=== PATIENT | male | born 1960 | race Caucasian/White ===

== ENCOUNTER 2017-09-29 16:34 | Emergency (ER) | payer MEDICARE, OTHER ==
--- NOTE | 2017-09-29 16:59 | UC ---
Head Injury HPI - HPI Summary HPI Summary: fell and hit his head this evening no loc but did see stars abrasion on right side of forehead - History Of Current Complaint Chief Complaint: UCHeadInjury Stated Complaint: HEAD INJURY Time Seen by Provider: 09/29/17 16:47 Hx Obtained From: Patient Mechanism Of Injury: fall on ice Onset/Duration: Sudden Onset, Still Present, Other - happened 30 minutes prior to arrival Severity Currently: Mild Severity Initially: Mild Aggravating Factor(s): Nothing Alleviating Factor(s): Nothing Associated Signs And Symptoms: Positive: Negative - Allergies/Home Medications Allergies/Adverse Reactions: Allergies Allergy/AdvReac Type Severity Reaction Status Date / Time Fentanyl Allergy Vomiting Verified 09/29/17 17:02 Buprenorphine [From Butrans] AdvReac Diaphoresis Verified 09/29/17 17:02 PMH/Surg Hx/FS Hx/Imm Hx Previously Healthy: No - chronic pain - Surgical History Surgical History: Yes Surgery Procedure, Year, and Place: double hernia repair X2; L hand sx - Family History Known Family History: Positive: None - Social History Occupation: Disabled Lives: With Family Alcohol Use: None Alcohol Amount: over use occasionally. couple months ago had hangover that lasted 2 days. Substance Use Type: None Substance Use Comment - Amount & Last Used: tylenol with codeine Smoking Status (MU): Former Smoker Type: Cigarettes When Did the Patient Quit Smoking/Using Tobacco: - Immunization History Most Recent Influenza Vaccination: 2012 Most Recent Tetanus Shot: 2011 Most Recent Pneumonia Vaccination: n/a Review of Systems Constitutional: Negative Skin: Negative, Bruising - Abrasion on right side of forehead Eyes: Negative ENT: Negative Respiratory: Negative Cardiovascular: Negative Gastrointestinal: Negative Genitourinary: Negative Motor: Negative Neurovascular: Negative Musculoskeletal: Negative Neurological: Headache Psychological: Negative Is Patient Immunocompromised?: No All Other Systems Reviewed And Are Negative: Yes Physical Exam Triage Information Reviewed: Yes Appearance: Well-Appearing, No Pain Distress, Well-Nourished Vital Signs Reviewed: Yes Eye Exam: Normal Eyes: Positive: Conjunctiva Clear ENT Exam: Normal ENT: Positive: Normal ENT inspection, Hearing grossly normal, Pharynx normal, TMs normal, Uvula midline. Negative: Nasal congestion, Nasal drainage, Tonsillar swelling, Tonsillar exudate, Trismus, Muffled voice, Hoarse voice, Sinus tenderness Dental Exam: Normal Neck exam: Normal Neck: Positive: Supple, Nontender, No Lymphadenopathy Respiratory Exam: Normal Respiratory: Positive: Chest non-tender, Lungs clear, Normal breath sounds, No respiratory distress, No accessory muscle use Cardiovascular Exam: Normal Cardiovascular: Positive: RRR, No Murmur, Pulses Normal, Brisk Capillary Refill Musculoskeletal Exam: Normal Musculoskeletal: Positive: Strength Intact, ROM Intact, No Edema Neurological Exam: Normal Neurological: Positive: Alert, Muscle Tone Normal Psychological Exam: Normal Skin Exam: Other Skin: Positive: Other - absasion on right side of forehead Diagnostics - Radiology No standard instances Xray Interpretation: No Acute Changes Radiology Interpretation Completed By: Radiologist - EKG Cardiac Rate: NL Cardiac Rhythm: Sinus: Normal Ectopy: None ST Segment: Normal Head Injury Course/Dx - Course Course Of Treatment: wash abrasion with mild soap and water daily, "Brain Rest" follow with pcp prn - Differential Dx/Diagnosis Provider Diagnoses: forehead contusion, head injury , concussion without LOC Discharge - Discharge Plan Condition: Stable Disposition: HOME Patient Education Materials: Concussion (ED), Abrasion (ED), Post Concussion Syndrome (ED) Referrals: Juan Ochoa MD [Medical Doctor] - If Needed
[2017-09-29 17:01] VITALS: BP 126/85
--- NOTE | 2017-09-29 17:32 | RAD ---
INDICATION: Intracranial injury COMPARISON: None TECHNIQUE: Noncontrast axial source images were acquired from the skull base to the vertex. FINDINGS: Ventricles/sulci: The ventricles and cisterns are normal in size and configuration for age. Brain parenchyma: There is no focal parenchymal finding, evidence of intracranial mass, or intracranial mass effect. Intracranial hemorrhage:None. Extra-axial spaces: There are no abnormal extra axial fluid collections or evidence of extra-axial mass. Calvarium: There is no calvarial fracture or other calvarial abnormality. Scalp: There is no evidence of scalp or extracalvarial soft tissue abnormality. Paranasal sinuses/mastoid: The paranasal sinuses and mastoid air cells are clear. Other: None. IMPRESSION: NEGATIVE EXAMINATION
== END 2017-09-29 17:55 | disposition home or self-care (01) ==
LOC: UCEAST 16:34
DX: S00.83XA Contusion of other part of head, initial encounter (principal); S06.0X0A Concussion without loss of consciousness, initial encounter; Z88.5 Allergy status to narcotic agent; Z87.891 Personal history of nicotine dependence; W19.XXXA Unspecified fall, initial encounter; W22.8XXA Striking against or struck by other objects, initial encounter; Y92.9 Unspecified place or not applicable
CPT/HCPCS: 70450; 93005; 99212; G0463

== ENCOUNTER 2019-03-14 11:57 | Emergency (ER) | payer MEDICARE, OTHER ==
[2019-03-14] MEDS ORDERED: Morphine 4 MG/ML VIAL (1 ml) 4 MG/ML VIAL IV ONE (12:13)
[2019-03-14] MEDS ORDERED: Ondansetron INJ* 2 MG/ML VIAL IV ONE (12:13)
[2019-03-14] MEDS ORDERED: NS 0.9% 1000 ML** 1,000 ML IV ONE (12:13)
--- NOTE | 2019-03-14 12:19 | ED ---
Abdominal Pain/Male - HPI Summary HPI Summary: This patient is a 58 year old male presenting to ED via EMS with a chief complaint of ABD pain since a couple of hours ago. The CC is described as lower ABD pain, left flank and back pain. The pt states he was going to garden, but then got cramps in his abdominal area, a burning sensation at his left flank and pain throughout his whole back. He became nauseous and vomited. Pt reports no dysuria and slight hematuria, but does not describe this as acute. The patient rates the pain slowly decreasing in severity and currently rates it . Pt took [employer], which did not alleviate symptoms. EMS did not provide any medications for his pain. Pt states he hast a fentanyl allergy, noting that he vomits upon taking it. He notes his left flank is still sore, and that he still has lower ABD pain/cramps and some numbness in left leg. Patient denies chest pain, SOB. He reports Hx of pinched nerve in his lower back. Patient denies heart problems, and aorta problems. Pt notes he has a history of disc problems , is a former smoker, does not use drugs, and is an occasional drinker. He has no Hx of kidney stones or diverticulitis. - History of Current Complaint Chief Complaint: EDAbdPain Stated Complaint: ABD PAIN Time Seen by Provider: 03/14/19 12:02 Hx Obtained From: Patient Onset/Duration: Sudden Onset, Lasting Hours, Still Present Timing: Constant, Lasting Hours Severity Initially: Severe Severity Currently: Severe Pain Intensity: 8 Pain Scale Used: 0-10 Numeric Location: Discrete At: LLQ, Flank - left, Other - whole back Character: Cramping Aggravating Factor(s): Nothing Alleviating Factor(s): Vomiting Associated Signs And Symptoms: Positive: Back Pain, Nausea, Vomiting, Other - positive left leg numbness, negative SOB. Negative: Chest Pain, Urinary Symptoms - Allergies/Home Medications Allergies/Adverse Reactions: Allergies Allergy/AdvReac Type Severity Reaction Status Date / Time buprenorphine [From Butrans] Allergy Unknown Diaphoresis Verified 03/14/19 12:08 fentanyl AdvReac Unknown Vomiting Verified 03/14/19 12:08 Home Medications: Home Medications ValACYclovir (*) [Valtrex 500 mg (*)] 500 mg PO DAILY 03/14/19 [History Confirmed 03/14/19] PMH/Surg Hx/FS Hx/Imm Hx Endocrine/Hematology History: Denies: Hx Diabetes Cardiovascular History: Reports: Hx Hypercholesterolemia Denies: Hx Hypertension, Hx Pacemaker/ICD Respiratory History: Reports: Hx Chronic Bronchitis, Hx Pneumonia, Hx Seasonal Allergies GI History: Reports: Hx Hiatal Hernia History: Denies: Hx Renal Disease Musculoskeletal History: Reports: Hx Arthritis, Hx Back Problems, Other Musculoskeletal History Denies: Hx Scoliosis Sensory History: Reports: Hx Contacts or Glasses - Reading glasses Denies: Hx Hearing Aid Opthamlomology History: Reports: Hx Contacts or Glasses - Reading glasses Neurological History: Reports: Hx Headaches - MAIGRANES, Hx Migraine, Other Neuro Impairments/Disorders - PAIN CLINIC PATIENT Psychiatric History: Reports: Hx Depression Denies: Hx Panic Disorder - Surgical History Surgery Procedure, Year, and Place: double hernia repair X2; L hand - stitches - Immunization History Immunizations Up to Date: Yes Infectious Disease History: Unable to Obtain/Confirm Infectious Disease History: Denies: Traveled Outside the [place] in Last 30 Days - Family History Known Family History: Positive: Other - family Hx of arthritis and suicide - Social History Alcohol Use: Occasionally Alcohol Amount: 1x/year Substance Use Type: Reports: None Substance Use Comment - Amount & Last Used: tylenol with codeine Smoking Status (MU): Former Smoker Type: Cigarettes Review of Systems Negative: Chest Pain Negative: Shortness Of Breath Positive: Abdominal Pain, Vomiting, Nausea Positive: flank pain - left, hematuria - some blood present in urine. Negative : dysuria Musculoskeletal: Other - positive back pain Positive: Numbness - left leg All Other Systems Reviewed And Are Negative: Yes Physical Exam - Summary Physical Exam Summary: GENERAL: Patient is a well-developed and nourished M who is lying with some pain in the stretcher. Patient is not in any acute respiratory distress. HEAD AND FACE: Normocephalic EYES: PERRLA, EOMI x 2. EARS: Hearing grossly intact. MOUTH: Oropharynx within normal limits. NECK: Supple, trachea is midline, no adenopathy, no JVD, no carotid bruit. CHEST: Symmetric, no tenderness at palpation LUNGS: Clear to auscultation bilaterally. No wheezing or crackles. CVS: Regular rate and rhythm, S1 and S2 present, no murmurs or gallops appreciated. ABDOMEN: tenderness to palpation at LLQ. Bowel sounds are normal. No abnormal abdominal pulsations. EXTREMITIES: Full ROM in all major joints, no edema, no cyanosis or clubbing. NEURO: Alert and oriented x 3. No acute neurological deficits. Speech is normal and follows commands. SKIN: Dry and warm Triage Information Reviewed: Yes Vital Signs On Initial Exam: Initial Vitals Temp Pulse Resp BP Pulse Ox 96.8 F 65 16 125/85 100 03/14/19 12:00 03/14/19 12:00 03/14/19 12:00 03/14/19 12:00 03/14/19 12:00 Vital Signs Reviewed: Yes Diagnostics - Vital Signs Vital Signs Temp Pulse Resp BP Pulse Ox 03/14/19 12:00 96.8 F 65 16 125/85 100 - Laboratory Result Diagrams: 03/14/19 12:23 03/14/19 12:23 Lab Statement: Any lab studies that have been ordered have been reviewed, and results considered in the medical decision making process. - CT ABD/PEL CT Interpretation Completed By: Radiologist Summary of CT Findings: CT ABD/PEL IMPRESSION. 1. THERE IS A 7 X 3 MM CALCULUS AT THE LEFT URETEROVESICAL JUNCTION CAUSING MILD TO. MODERATE HYDRONEPHROSIS. 2. THERE IS A ADDITIONAL 2 MM NONOBSTRUCTING LEFT RENAL CALCULUS. THIS REPORT WAS REVIEWED BY DR. SUAZO - EKG 1221 Cardiac Rate: NL - RATE OF 66 BPM EKG Rhythm: Sinus Rhythm Summary of EKG Findings: EKG showed sinus rhythm with rate of 66 BPM, normal axis. Abdominal Pain Male Course/Dx - Course Course Of Treatment: This patient is a 58 year old male presenting to ED via EMS with a chief complaint of ABD pain since a couple of hours ago. The CC is described as lower ABD pain, left flank and back pain. He became nauseous and vomited. Pt reports no dysuria and slight hematuria, but does not describe this as acute. The patient notes the pain is slowly decreasing in severity and currently rates it 8/10. Patient denies chest pain, SOB. He reports Hx of pinched nerve in his lower back. He has no Hx of kidney stones or diverticulitis. On physical exam, there was tenderness to palpation at LLQ of the pt's ABD. During ED course, patient received Toradol 30 mg IV, Zofran 4 mg IV, morphine 4 mg IV, and fluids. Lab results show elevated WBC, MCV, MCH, BUN/ creatinine, and glucose. CT ABD/PEL IMPRESSION. 1. THERE IS A 7 X 3 MM CALCULUS AT THE LEFT URETEROVESICAL JUNCTION CAUSING MILD TO. MODERATE HYDRONEPHROSIS. 2. THERE IS A ADDITIONAL 2 MM NONOBSTRUCTING LEFT RENAL CALCULUS. Results were discussed with patient, patient reports improvement in Sx. Patient is agreeable with discharged and follow up with urologist and primary care physician. - Diagnoses Provider Diagnoses: Kidney stones Discharge - Sign-Out/Discharge Documenting (check all that apply): Patient Departure - discharge Patient Received Moderate/Deep Sedation with Procedure: No - Discharge Plan Condition: Stable Disposition: HOME Prescriptions: Ibuprofen TAB* [Motrin TAB* 800 MG] 800 mg PO Q8H #24 tab Ondansetron ODT TAB* [Zofran 4 MG Odt TAB*] 4 mg PO Q6H PRN #9 tab.odt PRN Reason: Nausea Oxycodone HCl/Acetaminophen [Percocet 5-325 mg Tablet] 1 each PO Q6H PRN #16 tablet MDD 4 PRN Reason: Pain Tamsulosin HCl [Flomax] 0.4 mg PO DAILY 30 Days cap.er.24h Tamsulosin HCl [Flomax] 0.4 mg PO DAILY #30 cap.er.24h Patient Education Materials: Kidney Stones (ED) Referrals: Vijaya Pineda MD [Primary Care Provider] - 3 Days Kwaku Balderrama MD [Medical Doctor] - As Soon As Possible Additional Instructions: CALL UROLOGIST'S OFFICE TODAY FOR AN APPOINTMENT. RETURN TO ED FOR ANY NEW OR WORSENING SYMPTOMS. - Billing Disposition and Condition Condition: STABLE Disposition: Home - Attestation Statements Document Initiated by Gissell: Yes Documenting Scribe: COMPA MARSHALL Provider For Whom Gissell is Documenting (Include Credential): VAN SUAZO MD Scribe Attestation: COMPA Jimenez scribed for VAN SUAZO MD on 03/14/19 at 1956. Scribe Documentation Reviewed: Yes Provider Attestation: The documentation as recorded by the COMPA kelly accurately reflects the service I personally performed and the decisions made by me, VAN SUAZO MD Status of Scribe Document: Viewed
[2019-03-14 12:34] LABS: ABS Lymphocytes 0.6 10^3/ul (1.0-4.8); ABS Monocytes 0.4 10^3/ul (0-0.8); ABS Neutrophils 10.4 10^3/ul (1.5-7.7); Eosinophil % 0.2 %; Hematocrit 44 % (42-52); Hemoglobin 14.7 g/dL (14.0-18.0); Lymphocyte % 5.2 %; Mean Corpuscular HGB Conc 33 g/dL (31-36); Mean Corpuscular Hemoglobin 34 pg (27-31); Mean Corpuscular Volume 101 fL (80-94); Mean Platelet Volume 8.6 fL (7.4-10.4); Nucleated Red Blood Cells % 0.1; Platelet Count 207 10^3/uL (150-450); Red Blood Count 4.35 10^6 /uL (4.18-5.48); Red Cell Distribution Width 14 % (10.5-15); White Blood Count 11.5 10^3/uL (3.5-10.8)
[2019-03-14 12:44] LABS: Activated Partial Thrombo Time 28.8 seconds (26.0-38.0); INR 0.96 (0.82-1.09)
[2019-03-14 12:54] LABS: Urine Appearance Cloudy; Urine Bacteria Absent (Absent); Urine Bilirubin Negative (Negative); Urine Blood 3+ (Negative); Urine Color Yellow; Urine Glucose Negative (Negative); Urine Ketones 1+ (Negative); Urine Nitrite Negative (Negative); Urine Protein Negative (Negative); Urine Red Blood Cell 3+(>10/hpf) (Absent); Urine Specific Gravity 1.026 (1.010-1.030); Urine Urobilinogen Negative (Negative); Urine White Blood Cell Trace(0-5/hpf) (Absent)
[2019-03-14 12:56] LABS: Albumin 4.2 g/dL (3.2-5.2); Albumin/Globulin Ratio 1.4 (1-3); BUN/Creatinine Ratio 22.1 (8-20); C Reactive Protein 5.47 mg/L (<8.01); Calcium 10.2 mg/dL (8.6-10.3); EGFR African American 88.4 (>60); EGFR Non-African American 73.1 (>60); Potassium 4.1 mmol/L (3.5-5.0); Total Bilirubin 0.6 mg/dL (0.2-1.0); Total Protein 7.2 g/dL (6.4-8.9)
[2019-03-14] MEDS ORDERED: Ketorolac INJ* 30 MG/ML 1 ML VIAL IV PUSH ONE (13:22)
[2019-03-14 14:17] VITALS: BP 111/75
== END 2019-03-14 14:17 | disposition home or self-care (01) ==
LOC: ED 11:57
DX: N13.2 Hydronephrosis with renal and ureteral calculous obstruction (principal); Z87.891 Personal history of nicotine dependence; Z79.899 Other long term (current) drug therapy; Z88.5 Allergy status to narcotic agent
CPT/HCPCS: 36415; 74176; 80053; 81003; 81015; 83605; 83690; 83735; 84484; 85025; 85610; 85730; 86140; 87086; 93005; 96361; 96374; 96375; 99283; J1885; J2270; J2405

== ENCOUNTER 2019-03-28 08:17 | Day surgery (SDC) | payer MEDICARE, OTHER ==
--- NOTE | 2019-03-26 10:56 | HP ---
CC: Dr. Pineda * ADMITTING HISTORY AND PHYSICAL: DATE OF ADMISSION: 03/28/19 ADMITTING DIAGNOSES: 1. Calculus, left ureter. 2. Left hydronephrosis. PLANNED PROCEDURE: Left ureteroscopy, possible laser and stent insertion. SURGEON: Dr. Angeles. HISTORY OF PRESENT ILLNESS: Abhi Herrera is a 58-year-old gentleman who had recently been seen after an episode of severe left flank pain. CT scan and a subsequent ultrasound revealed a 6-mm partially obstructing calculus persistent of the left ureterovesical junction and he is now being brought in for management of the same. PAST MEDICAL HISTORY: Significant for: 1. Depression. 2. Chronic back and neck pain. 3. Hiatal hernia. PAST SURGICAL HISTORY: Significant for bilateral inguinal hernia repair and left hand surgery. MEDICATIONS: On admission include: 1. Pantoprazole 20 mg daily. 2. Tramadol 50 mg p.r.n. 3. Pravastatin 20 mg daily. 4. Escitalopram 5 mg daily. 5. Diclofenac 75 mg b.i.d. p.r.n. 6. Valacyclovir 1 mg daily. He also was recently started on Z-Juan, which is now finished for bronchitis and also was given a short-term inhaler for cough related to the bronchitis. ALLERGIES AND INTOLERANCES: FENTANYL PATCH (vomiting). FAMILY HISTORY: Negative for stones or for bladder or prostate cancer. SMOKING HISTORY: He is a former smoker, who quit 20 years ago with a 15-pack- year smoking history. REVIEW OF SYSTEMS: He is otherwise in good health. He denies any chest pain or shortness of breath. He has no history of diabetes mellitus or any other major systemic illness. PHYSICAL EXAMINATION GENERAL: Pleasant middle-aged gentleman. VITAL SIGNS: Blood pressure is 140/68, pulse 83 per minute, oxygen saturation 99% on room air, temperature 96. LUNGS: Clear bilaterally. CARDIOVASCULAR: Regular rate and rhythm. S1, S2. ABDOMEN: Soft with mild left flank tenderness. IMPRESSION: A 58-year-old gentleman with a partially obstructing calculus persistent at the left ureterovesical junction. Planned procedure is left ureteroscopy, possible laser and stent insertion. [id number]/[facility] #: [id number] [facility]
[~2019-03-28 08:17] MED LIST: Buffered Lidocaine 1% SYRIN* 1 ML/SYRINGE INTRADERM ONE; Dexamethasone IV* 4 MG/ML 1 ML (4 MG) IV SLOW PU ONE; Famotidine IV* 10 MG/ML 2 ML (20 mg) IV ONE; Lactated Ringers 1000 ML Bag* 1,000 ML IV SCH
[2019-03-28] MEDS ORDERED: cefTRIAXone(*) 2 GM ADDV.VIAL IVPB ONE (09:43)
[2019-03-28] MEDS ORDERED: Dexamethasone IV* 4 MG/ML 1 ML (4 MG) ONE (09:43)
[2019-03-28] MEDS ORDERED: Famotidine IV* 10 MG/ML 2 ML (20 mg) ONE (09:44)
[2019-03-28] MEDS ORDERED: Iohexol 180 (CONTRAST) 10 ML SDV IV ONE ×2 (11:38→12:57)
[2019-03-28] MEDS ORDERED: Midazolam* 1 MG/ML 2 ML VIAL (2 MG) ONE (12:00)
[2019-03-28] MEDS ORDERED: fentaNYL* 50 MCG/ML 2 ML VIAL (100 MCG VIAL) ONE (12:00)
[2019-03-28] MEDS ORDERED: Lidocaine 2% PF * 5 ML VIAL ONE (12:01)
[2019-03-28] MEDS ORDERED: Propofol* 10 MG/ML 20 ML BTL ONE (12:39)
[2019-03-28] MEDS ORDERED: Ketorolac INJ* 30 MG/ML 1 ML VIAL ONE (12:39)
[2019-03-28] MEDS ORDERED: Ondansetron INJ* 2 MG/ML VIAL ONE (12:39)
[2019-03-28] MEDS ORDERED: Naloxone* 0.4 MG/ML 1 ML VIAL IV PRN (13:20)
[2019-03-28] MEDS ORDERED: DiMENhydriNATE IV* 50 MG/ML VIAL IV PUSH PRN (13:20)
[2019-03-28] MEDS ORDERED: HYDROmorphone INJ1* 1 MG/ML SYRINGE IV PRN (13:20)
[2019-03-28] MEDS ORDERED: Tamsulosin CAP* 0.4 MG ONE (13:28)
--- NOTE | 2019-03-28 14:35 | OP ---
CC: Dr. Vijaya Pineda; Dr. Angeles* OPERATIVE REPORT: DATE OF OPERATION: 03/28/19 - [facility] DATE OF : 58 SURGEON: Sher Angeles MD ANESTHESIOLOGIST: Dr. York. ANESTHESIA: General. PRE-OP DIAGNOSES: 1. Calculus, left ureter. 2. Left hydronephrosis. POST-OP DIAGNOSES: 1. Calculus, left ureter. 2. Left hydronephrosis. OPERATIVE PROCEDURE: Cystoscopy, left retrograde pyelogram, left ureteroscopy and laser lithotripsy, removal of calculus fragments, and left stent insertion. COMPLICATIONS: None. OPERATIVE FINDINGS: Approximately 7 mm calculus left distal ureter with mild left hydronephrosis. STENT USED: A 7-Kazakh stent, left ureter. POSTOPERATIVE CONDITION: Stable. INDICATIONS: Abhi Herrera is a 58-year-old gentleman who has had persistent calculus in the left distal ureter and is now being brought in for left ureteroscopy. DESCRIPTION OF PROCEDURE: After induction of general anesthesia, the patient was placed in dorsal lithotomy position. Sequential compression devices were in place and functioning. Initial cystoscopy revealed a normal appearing urethra and mildly enlarged prostate. The bladder was examined and was unremarkable. A guidewire was introduced into the left ureter. Retrograde pyelogram revealed mild fullness of the left collecting system. A 6-Kazakh semi -rigid ureteroscope was introduced and advanced into the left ureter. The distal most part of the left ureter was somewhat tortuous and about 2 to 3 cm above the ureterovesical junction, a 7 mm calculus was noted with some surrounding inflammatory response. Using the 550 micron Holmium laser fiber, this was successfully broken up into smaller fragments and all of the fragments were retrieved. At the end of the procedure, there were no remaining fragments and a 7-Kazakh stent was introduced and positioned under fluoroscopy with good proximal and distal positioning obtained. The bladder was emptied. The patient tolerated the procedure satisfactorily and was transferred back to the recovery area in stable condition. [id number]/[facility] #: [id number] MTDD
[2019-03-28 14:45] VITALS: BP 111/80
== END 2019-03-28 14:49 | disposition home or self-care (01) ==
LOC: OR 08:17
PROVIDERS: ATTEND Urology
DX: N13.2 Hydronephrosis with renal and ureteral calculous obstruction (principal); Z87.891 Personal history of nicotine dependence; K21.9 Gastro-esophageal reflux disease without esophagitis; J40 Bronchitis, not specified as acute or chronic
CPT/HCPCS: 74420; 82365; 88300; C1876; J0696; J1100; J1885; J2250; J2405; J2704; J3010

== ENCOUNTER 2019-12-21 11:55 | Emergency (ER) | payer MEDICARE ==
--- OUTSIDE RECORDS SUMMARY | 2019-12-21 12:01 | XMS REPORT | Continuity of Care Document ---
:1960 External Reference #:[id number] Author Name Vijaya Pineda MD (transmitted by agent of provider Jody Lopez) Address [address], [place] [address] Care Team Providers Name Role Phone Dawit De Guzman MD - Dermatology Care Team Information Antique Dealer [phone] Randall Cervantes MD - Infectious Care Team Information Antique Dealer [phone] Disease Juan R Elizalde DPM - Foot Surgery Care Team Information Antique Dealer Vijaya Pineda MD - Internal Medicine Care Team Information Antique Dealer Problems Active Problems Provider Date Disorder of lumbar disc Juan Ochoa M.D. Onset: 08/29/2014 Cervical disc disorder Juna Ochoa M.D. Onset: 08/29/2014 Migraine with typical aura Juan Ochoa M.D. Onset: 08/29/2014 Atopic dermatitis Juan Ochoa M.D. Onset: 08/29/2014 Gastroduodenitis Juan Ochoa M.D. Onset: 09/03/2014 Mixed hyperlipidemia Juan Ochoa M.D. Onset: 04/22/2015 Allergic condition Juan Ochoa M.D. Onset: 04/22/2015 Thoracic and lumbosacral neuritis Juan Ochoa M.D. Onset: 11/21/2015 Gastroesophageal reflux disease Juan Ochoa M.D. Onset: 11/19/2016 Dermatophytosis Juan Ochoa M.D. Onset: 11/19/2016 Hyperkalemia Juan Ochoa M.D. Onset: 11/29/2016 Contact dermatitis Juan Ochoa M.D. Onset: 12/20/2016 Methicillin resistant Staphylococcus aureus Juan Ochoa M.D. Onset: Pain in limb Juan Ochoa M.D. Onset: 07/28/2017 Mild recurrent major depression Juan Ochoa M.D. Onset: 01/04/2018 Psychogenic impotence Juan Ochoa M.D. Onset: 01/04/2018 Benign prostatic hypertrophy with outflow Juan Ochoa M.D. Onset: 06/14 obstruction Social History Type Date Description Comments Sex Unknown ETOH Use Has consumed alcohol in the past Tobacco Use Start: Unknown End: Patient is a former smoked 1ppd, quit Unknown smoker 1994 Recreational Drug Use Never Used Drugs Smoking Status Reviewed: 12/17/19 Patient is a former smoked 1ppd, quit smoker 1994 Allergies, Adverse Reactions, Alerts Active Allergies Reaction Severity Comments Date Fentanyl Nausea and Vomiting, 09/03/2014 Inactive Allergies NKDA 08/29/2014 Medications Active Medications SIG Qnty Indications Ordering Date Provider Nystatin After Cleansing 60units Vijaya Pineda MD 11/09/2019 [id number]/GM And Drying Powder Affected Area, Apply Powder Liberally Every 8 Hours Atorvastatin Calcium take 1 tablet at 90tabs E78.5 Vijaya Pineda MD 2018 20mg bedtime Tablets Shingrix inject per 2units Z23 Vijaya Pineda MD 07/05/2019 50mcg/0.5ML protocol Suspension Rec Sildenafil Citrate take one pill 5tabs N52.1 Vijaya Pineda MD 07/05/2019 100mg half an hour Tablets prior to sexual activity Albuterol Sulfate HFA one puff every 6 8.500gm J44.1 Vijaya Pineda MD 03/20 hours 108(90Base) mcg/Act Aerosol Cyclobenzaprine HCL take 1 tablet by 14tabs M54.2 Vijaya Pineda MD 2018 10mg mouth at night Tablets Valacyclovir HCL Take one tablet 14tabs A60.02 Vijaya Pineda MD 11/14/2018 1gm daily Tablets Pantoprazole Sodium take 1 tablet by 90tabs K29.70 Vijaya Pineda MD 2017 20mg mouth every Tablets DR morning before breakfast Fluocinonide apply twice 120ml [place] 02/16/2018 0.05% Solution daily Cameron Ochoa Nasonex use 2 sprays in 51gm Vijaya Pineda MD 50mcg/Act each nostril Suspension daily Medications Administered in Office Medication SIG Qnty Indications Ordering Provider Date Pneumococcal Conj,Unspecified Unknown 12/11/2019 Injection Shingrix pharmacy administered Unknown 12/11/2019 Injection Immunizations CPT Code Status Date Vaccine Reaction Lot # [id number] Given 07/23/2019 Influenza Virus Vaccine, Quadrivalent, Split, Preservative Free [id number] Given 07/06/2018 Influenza Virus Vaccine, No immediate [id number] Quadrivalent, Split, reaction...jh Preservative Free [id number] Given 08/02/2016 Influ Virus Vaccine, [id number] Quadrivalent, Split Virus, [place] [id number] Given 07/24/2015 Influenza Virus Vaccine, [id number] Quadrivalent, Split, Preservative Free Vital Signs Date Vital Result Comment 12/17/2019 2:28pm Height 69 inches 5'9" Weight 167.00 lb Heart Rate 94 /min BP Systolic Sitting 114 mmHg BP Diastolic Sitting 81 mmHg Body Temperature 97.5 F O2 % BldC Oximetry 99 % BMI (Body Mass Index) 24.7 kg/m2 07/05/2019 11:17am Height 69 inches 5'9" Weight 173.00 lb Heart Rate 80 /min BP Systolic Sitting 111 mmHg BP Diastolic Sitting 82 mmHg Body Temperature 97.2 F O2 % BldC Oximetry 97 % BMI (Body Mass Index) 25.5 kg/m2 Results Test Acquired Date Facility Test Result H/L Range Note Lipid Profile 06/26/2019 [facility] Triglycerides 259 mg/dL 1 (Trig/Chol/HDL) [address] [place], [place] [id number] [phone] Cholesterol 275 mg/dL 2 HDL Cholesterol 44.8 mg/dL 3 LDL Cholesterol 178 mg/dL 4 Laboratory test 06/26/2019 [facility] Hemoglobin A1c 5.5 % Normal 4.0-5.[address] (Glyco HGB) [place], [place] [id number] [phone] Comp Metabolic 06/26/2019 [facility] Sodium 139 Normal 135- [address] mmol/[place] [address] [phone] Potassium 4.8 mmol/L Normal 3.5-5.0 Chloride 104 mmol/L Normal 101-111 Co2 Carbon Dioxide 29 mmol/L Normal 22-32 Anion Gap 6 mmol/L Normal 2-11 Glucose 103 mg/dL High 70-100 Blood Urea Nitrogen 17 mg/dL Normal 6-24 Creatinine 1.00 mg/dL Normal 0.67-1.17 BUN/Creatinine Ratio 17.0 Normal 8-20 Calcium 9.9 mg/dL Normal 8.6-10.3 Total Protein 7.0 g/dL Normal 6.4-8.9 Albumin 4.5 g/dL Normal 3.2-5.2 Globulin 2.5 g/dL Normal 2-4 Albumin/Globulin Ratio 1.8 Normal 1-3 Total Bilirubin 0.60 mg/dL Normal 0.2-1.0 Alkaline Phosphatase 90 U/L Normal 34-104 Alt 20 U/L Normal 7-52 Ast 20 U/L Normal 13-39 Egfr Non- 76.5 >60 Egfr 92.5 >60 6 1 Desirable: <150 Borderline High: 150-199 High: 200-499 Very High: >500 2 Desirable: <200 Borderline High: 200-239 High: >239 3 Low: <40 Desirable: 40-60 High: >60 4 Desirable: <100 Near Optimal: 100-129 Borderline High: 130-159 High: 160-189 Very High: >189 5 Therapeutic target for the treatment of diabetes mellitus patients is <7% HBA1C, and in selective patients <6.0%. Please refer to [place] [employer] diabetic care guidelines for further information. 6 Because ethnic data is not always readily available, this report includes an eGFR for both -Americans and non- Americans. The National Kidney Disease Education Program (NKDEP) does not endorse the use of the MDRD equation for patients that are not between the ages of 18 and 70, are , have extremes of body size, muscle mass, or nutritional status, or are non- or non-. According to the National Kidney Foundation, irrespective of diagnosis, the stage of the disease is based on the level of kidney function: Stage Description GFR(mL/min/1.73 m(2)) 1 Kidney damage with normal or decreased GFR 90 2 Kidney damage with mild decrease in GFR 60-89 3 Moderate decrease in GFR 30-59 4 Severe decrease in GFR 15-29 5 Kidney failure <15 (or dialysis) Procedures Date Code Description Status 01/24/2017 [id number] Colonoscopy Completed 01/20/2015 [id number] Colonoscopy Completed Medical Devices Description No Information Available Encounters Type Date Location Provider Dx Diagnosis Office Visit 12/17/2019 [facility] [employer] [facility] Vijaya Pineda MD J06.9 Acute upper 2:40p Medicine - Ccmob respiratory infection, unspecified Assessments Date Code Description Provider 12/17/2019 J06.9 Acute upper respiratory infection, unspecified Vijaya Pineda MD 07/05/2019 Z00.00 Encounter for general adult medical examination Vijaya Pineda MD without abnormal findings 07/05/2019 E78.5 Hyperlipidemia, unspecified Vijaya Pineda MD 07/05/2019 K21.9 Gastro-esophageal reflux disease without Vijaya Pineda MD esophagitis 07/05/2019 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 You can continue to usethe Robitussin with codeine at night for prevention of cough. Continue to keep hydrated and rest. Try to add some vitamin C to help prevent illness.You have had concern about migraine ogden. This does notseem to be what you are suffering from. The next time you have a ogden , please try Excedrin. Continue to stay hydrated, this will also help. Functional Status Description No Information Available Mental Status Description No Information Available Referrals Description No Information Available
--- OUTSIDE RECORDS SUMMARY | 2019-12-21 12:01 | XMS REPORT | Continuity of Care Document ---
:1960 External Reference #:[id number] Author Name Vijaya Pineda MD Address [address] [place] [address] Care Team Providers Name Role Phone Dawit De Guzman MD - Dermatology Care Team Information Associate Professor Of History Randall Cervantes MD - Infectious Care Team Information Associate Professor Of History [phone] Disease Juan R Elizalde DPM - Foot Surgery Care Team Information Associate Professor Of History Vijaya Pineda MD - Internal Medicine Care Team Information Associate Professor Of History Problems Active Problems Provider Date Disorder of lumbar disc Juan Ochoa M.D. Onset: 08/29/2014 Cervical disc disorder Juan Ochoa M.D. Onset: 08/29/2014 Migraine with typical [...] After Cleansing 60units Vijaya Pineda MD 11/09/2019 752088Dbje/GM And Drying Powder Affected Area, Apply Powder [...] morning before breakfast Fluocinonide apply twice 120ml Juan 02/16/2018 0.05% Solution daily Bhargav Ochoa. Nasonex use 2 sprays in 51gm Vijaya Pineda MD 50mcg/Act each nostril Suspension daily Medications Administered in Office Medication SIG Qnty Indications Ordering Provider Date Pneumococcal Conj,Unspecified Unknown 12/11/2019 Injection Shingrix pharmacy administered Unknown 12/11/2019 Injection Immunizations CPT Code Status Date Vaccine Reaction Lot # [id number] Given 07/23/2019 Influenza Virus Vaccine, Quadrivalent, Split, Preservative Free 52501 Given 07/06/2018 Influenza Virus Vaccine, No immediate [id number] Quadrivalent, Split, reaction...jh Preservative Free 84812 Given 08/02/2016 Influ Virus Vaccine, [id number] Quadrivalent, Split Virus, [place] [id number] Given 07/24/2015 Influenza Virus Vaccine, [id number] Quadrivalent, [...] Result H/L Range Note Lipid Profile 06/26/2019 [facility] Triglycerides 259 mg/dL 1 (Trig/Chol/HDL) [address] [place], [place] [id number] [phone] Cholesterol 275 mg/dL 2 HDL Cholesterol 44.8 mg/dL 3 LDL Cholesterol 178 mg/dL 4 Laboratory test 06/26/2019 [facility] Hemoglobin A1c 5.5 % Normal 4.0-5.[address] (Glyco HGB) [place], [place] [id number] [phone] Comp Metabolic 06/26/2019 [facility] Sodium 139 Normal 135- [address] mmol/L [place], [place] [id number] [phone] Potassium 4.8 mmol/L Normal 3.5-5.0 Chloride 104 [...] in selective patients <6.0%. Please refer to [place] [employer] diabetic care guidelines for further [...] dialysis) Procedures Date Code Description Status 01/24/2017 [id number] Colonoscopy Completed 01/20/2015 [id number] Colonoscopy Completed Medical Devices Description No Information Available Encounters Description No Information Available Assessments Date Code Description Provider 12/17/2019 J06.9 [...]
[2019-12-21 12:42] VITALS: BP 118/79
--- NOTE | 2019-12-21 13:12 | UC ---
Respiratory Complaint HPI - HPI Summary HPI Summary: Patient is a 59-year-old male presenting with cough, chills, night sweats 12 days. States he does not have a thermometer at home but states he believes he had a fever. Denies shortness breath and wheezing. Denies nausea or vomiting. Denies taking anything for symptomatic relief. Patient states he was seen by his primary care doctor a few days ago and was told he had a viral illness. Denies being tested for flu. Denies history of asthma and COPD. Former smoker. - History of Current Complaint Chief Complaint: UCRespiratory Stated Complaint: COUGH,HEADACHE,POSSIBLE FEVER Hx Obtained From: Patient Pain Intensity: 8 Pain Scale Used: 0-10 Numeric - Allergies/Home Medications Allergies/Adverse Reactions: Allergies Allergy/AdvReac Type Severity Reaction Status Date / Time buprenorphine [From Be] Allergy Severe Diaphoresis Verified 12/21/19 12:42 fentanyl AdvReac Severe Vomiting Verified 12/21/19 12:42 Home Medications: Home Medications Ondansetron ODT TAB* [Zofran 4 MG Odt TAB*] 4 mg PO Q6H PRN #9 tab.odt 03/14/19 [Rx Confirmed 12/21/19] Tamsulosin HCl [Flomax] 0.4 mg PO DAILY 30 Days cap.er.24h 03/14/19 [Rx Confirmed 12/21/19] ValACYclovir (*) [Valtrex 500 mg (*)] 1 gm PO QAM 03/14/19 [History Confirmed ] Albuterol inh POWDER (NF) [Proair Respiclick] 1 puff INH Q6H PRN 03/26/19 [ History Confirmed 12/21/19] Cyclobenzaprine TAB* [Flexeril 10 MG TAB*] 10 mg PO BEDTIME PRN 03/26/19 [ History Confirmed 12/21/19] Fluticasone NASAL SPRAY 50MCG* [Flonase NASAL SPRAY 50MCG*] 2 spray BOTH NARES BID 03/26/19 [History Confirmed 12/21/19] Pantoprazole TAB (NF) [Protonix TAB (NF)] 20 mg PO QAM 03/26/19 [History Confirmed 12/21/19] PMH/Surg Hx/FS Hx/Imm Hx GI/ History: Gastroesophageal Reflux - Surgical History Surgical History: Yes Surgery Procedure, Year, and Place: double hernia repair X2; L hand - stitches - Family History Known Family History: Positive: None, Other - family Hx of arthritis and suicide - Social History Alcohol Use: None Alcohol Amount: 1x/year Substance Use Type: None Substance Use Comment - Amount & Last Used: tylenol with codeine Smoking Status (MU): Former Smoker Type: Cigarettes When Did the Patient Quit Smoking/Using Tobacco: 10 years ago - Immunization History Most Recent Influenza Vaccination: 2012 Most Recent Tetanus Shot: 2011 Most Recent Pneumonia Vaccination: n/a Review of Systems All Other Systems Reviewed And Are Negative: Yes Constitutional: Positive: Chills, Fatigue ENT: Positive: Sinus Congestion Respiratory: Positive: Cough - Nonproductive. Negative: Shortness Of Breath Cardiovascular: Positive: Negative Gastrointestinal: Positive: Negative Musculoskeletal: Positive: Myalgia Neurological/Mental Status: Positive: Negative Physical Exam Triage Information Reviewed: Yes Appearance: Well-Appearing, No Pain Distress, Well-Nourished Vital Signs: Initial Vital Signs Temp 96.9 F 12/21/19 12:37 Pulse 76 12/21/19 12:37 Resp 16 12/21/19 12:37 BP 118/79 12/21/19 12:37 Pulse Ox 99 12/21/19 12:37 Lab Results 12/21/19 Range/Units 13:49 Influenza B (Rapid) Positive H (Negative) Vital Signs Reviewed: Yes Eyes: Positive: Conjunctiva Clear ENT: Positive: Hearing grossly normal, Pharynx normal, TMs normal, Uvula midline. Negative: Nasal congestion Neck exam: Normal Neck: Positive: Supple, Nontender, No Lymphadenopathy Respiratory Exam: Normal Respiratory: Positive: Lungs clear, Normal breath sounds, No respiratory distress, No accessory muscle use. Negative: Crackles, Rhonchi, Stridor, Wheezing Cardiovascular Exam: Normal Cardiovascular: Positive: RRR Neurological: Positive: Alert Psychological: Positive: Age Appropriate Behavior Skin Exam: Normal Respiratory Course/Dx - Course Course Of Treatment: Positive rapid flu B. I educated the patient on influenza and symptomatic treatment. Educated on signs and symptoms of worsening rest. This and instructed to go to ED if any occur. Patient voiced understanding and agreed with the treatment plan. - Differential Dx/Diagnosis Provider Diagnosis: Influenza B Discharge ED - Sign-Out/Discharge Documenting (check all that apply): Patient Departure All imaging exams completed and their final reports reviewed: No Studies - Discharge Plan Condition: Stable Disposition: HOME Patient Education Materials: Influenza (ED) Referrals: Vijaya Pineda MD [Primary Care Provider] - If Needed Additional Instructions: As discussed, you tested positive for influenza B today. Continue to get plenty of rest and fluids. You may take ibuprofen and/or tylenol for fever and pain relief. Get plenty of rest and fluids. Follow up with your primary care provider if symptoms do not improve within 7 days. Go to the emergency room if you experience new or worsening symptoms, including fever higher than 102 and difficulty breathing. - Billing Disposition and Condition Condition: STABLE Disposition: Home
[2019-12-21 13:52] LABS: Influenza B Molecular POSITIVE (Negative)
[2019-12-21] MEDS ORDERED: Ibuprofen TAB* 600 MG PO ONE (13:52)
== END 2019-12-21 14:30 | disposition home or self-care (01) ==
LOC: UCEAST 11:55
DX: J10.1 Influenza due to other identified influenza virus with other respiratory manifestations (principal); K21.9 Gastro-esophageal reflux disease without esophagitis; Z88.5 Allergy status to narcotic agent; Z79.899 Other long term (current) drug therapy; Z87.891 Personal history of nicotine dependence
CPT/HCPCS: 99211; A9270-GY; G0463

== ENCOUNTER 2019-12-31 18:05 | Emergency (ER) | payer MEDICARE ==
[2019-12-31 19:08] VITALS: BP 117/85
[2019-12-31] MEDS ORDERED: Albuterol/Ipratropium NEB.SOL* Albuterol 2.5 MG/Ipratropium 0.5 MG 3 ML INH ONE (19:18)
--- NOTE | 2019-12-31 19:26 | UC ---
Respiratory Complaint HPI - HPI Summary HPI Summary: 59-year-old male presents with complaints of persistent cough and shortness of breath. He was seen at this facility on 12/21/2019 for a 12 day history of cough , chills, and night sweats. He tested positive for flu B at that time and was recommended symptomatic treatment. Patient states that there has been no improvement in his cough since that time. No measured fever. Continues to report some night sweats. Past couple of days developed a mild sore throat primarily in the morning. States he is a former smoker and has been told he probably has some COPD. Has been using his albuterol inhaler 2-3 times a day with some improvement in symptoms after use. Denies nasal congestion, ear pain , dysphagia, chest pain, palpitations, weakness, dizziness, edema, abdominal pain, nausea, or vomiting. - History of Current Complaint Chief Complaint: UCRespiratory Stated Complaint: COUGH Time Seen by Provider: 12/31/19 18:52 Hx Obtained From: Patient Pain Intensity: 5 - Allergies/Home Medications Allergies/Adverse Reactions: Allergies Allergy/AdvReac Type Severity Reaction Status Date / Time buprenorphine [From Be] Allergy Severe Diaphoresis Verified 12/31/19 18:53 fentanyl AdvReac Severe Vomiting Verified 12/31/19 18:53 Home Medications: Home Medications Tamsulosin HCl [Flomax] 0.4 mg PO DAILY 30 Days cap.er.24h 03/14/19 [Rx Confirmed 12/31/19] ValACYclovir (*) [Valtrex 500 mg (*)] 1 gm PO QAM 03/14/19 [History Confirmed ] Albuterol inh POWDER (NF) [Proair Respiclick] 1 puff INH Q6H PRN 03/26/19 [ History Confirmed 12/31/19] Cyclobenzaprine TAB* [Flexeril 10 MG TAB*] 10 mg PO BEDTIME PRN 03/26/19 [ History Confirmed 12/31/19] Fluticasone NASAL SPRAY 50MCG* [Flonase NASAL SPRAY 50MCG*] 2 spray BOTH NARES BID 03/26/19 [History Confirmed 12/31/19] Pantoprazole TAB (NF) [Protonix TAB (NF)] 20 mg PO QAM 03/26/19 [History Confirmed 12/31/19] Amoxicillin/Clavulanate TAB* [Augmentin TAB 875*] 875 mg PO BID #19 tab [Rx] Benzonatate CAP* [Tessalon 100 MG CAP*] 100 mg PO TID PRN #21 cap 12/31/19 [Rx] predniSONE 10 mg TAB [Deltasone 10 MG TAB*] 10 mg PO DAILY #26 tab 12/31/19 [Rx] PMH/Surg Hx/FS Hx/Imm Hx Respiratory History: COPD GI/ History: Gastroesophageal Reflux, Other - BPH - Surgical History Surgical History: Yes Surgery Procedure, Year, and Place: double hernia repair X2; L hand - stitches - Family History Known Family History: Positive: Other - family Hx of arthritis and suicide - Social History Occupation: Retired Lives: Alone Alcohol Use: None Alcohol Amount: 1x/year Substance Use Type: None Substance Use Comment - Amount & Last Used: tylenol with codeine Smoking Status (MU): Former Smoker Type: Cigarettes When Did the Patient Quit Smoking/Using Tobacco: 10 years ago - Immunization History Most Recent Influenza Vaccination: 2012 Most Recent Tetanus Shot: 2011 Most Recent Pneumonia Vaccination: n/a Review of Systems All Other Systems Reviewed And Are Negative: Yes Constitutional: Positive: Other - Night sweats. Negative: Fever, Chills Skin: Negative: Rash Eyes: Negative: Drainage, Eye Redness ENT: Positive: Sore Throat. Negative: Ear Ache, Nasal Discharge, Sinus Congestion, Sinus Pain/Tenderness Respiratory: Positive: Shortness Of Breath, Cough Cardiovascular: Negative: Palpitations, Chest Pain Gastrointestinal: Positive: Nausea. Negative: Abdominal Pain, Vomiting, Diarrhea Genitourinary: Positive: Negative Musculoskeletal: Positive: Negative Neurological/Mental Status: Positive: Negative Is Patient Immunocompromised?: No Physical Exam - Summary Physical Exam Summary: GENERAL APPEARANCE: Alert and cooperative older adult male who appears to be in no acute distress however is unable to speak in full sentences due to feeling SOB. EYES: Conjunctiva clear. No drainage. EARS: External auditory canals and tympanic membranes clear, hearing grossly intact. NOSE: No nasal discharge. THROAT: Pharyngeal cobblestoning. No tonsilar inflammation, swelling, exudate, or lesions. Uvula midline. NECK: Neck supple, non-tender without lymphadenopathy. CARDIAC: Normal S1 and S2. No S3, S4 or murmurs. Rhythm is regular. There is no peripheral edema, cyanosis or pallor. Extremities are warm and well perfused. Capillary refill is less than 2 seconds. Peripheral pulses intact. LUNGS: Mild, intermittent wheezing. Dry, bronchospastic cough. ABDOMEN: Positive bowel sounds. Soft, nondistended, nontender. No guarding or rebound. No masses or hepatosplenomegally. MUSKULOSKELETAL: ROM intact to all extremities. No joint erythema or tenderness. Normal muscular development. Normal gait. SKIN: Skin normal color, texture and turgor with no lesions or eruptions. Triage Information Reviewed: Yes Vital Signs: Initial Vital Signs Temp 97.6 F 12/31/19 19:08 Pulse 81 12/31/19 19:08 Resp 18 12/31/19 19:08 BP 117/85 12/31/19 19:08 Pulse Ox 100 12/31/19 19:08 Vital Signs Reviewed: Yes Respiratory Course/Dx - Course Course Of Treatment: 59-year-old male presents with complaints of persistent cough and shortness of breath. He was seen at this facility on 12/21/2019 for a 12 day history of cough , chills, and night sweats. He tested positive for flu B at that time and was recommended symptomatic treatment. Patient states that there has been no improvement in his cough since that time. No measured fever. Continues to report some night sweats. Past couple of days developed a mild sore throat primarily in the morning. States he is a former smoker and has been told he probably has some COPD. Has been using his albuterol inhaler 2-3 times a day with some improvement in symptoms after use. Denies nasal congestion, ear pain , dysphagia, chest pain, palpitations, weakness, dizziness, edema, abdominal pain, nausea, or vomiting. - Differential Dx/Diagnosis Differential Diagnosis/HQI/PQRI: Bronchitis, Exacerbation Of COPD, Lower Resp Infection, SARS Provider Diagnosis: Acute bronchitis, Reactive airway disease Discharge ED - Sign-Out/Discharge Documenting (check all that apply): Patient Departure All imaging exams completed and their final reports reviewed: No - Discharge Plan Condition: Stable Disposition: HOME Prescriptions: Amoxicillin/Clavulanate TAB* [Augmentin TAB 875*] 875 mg PO BID #19 tab Benzonatate CAP* [Tessalon 100 MG CAP*] 100 mg PO TID PRN #21 cap PRN Reason: Cough predniSONE 10 mg TAB [Deltasone 10 MG TAB*] 10 mg PO DAILY #26 tab Patient Education Materials: Acute Bronchitis (ED), Wheezing (ED) Referrals: Vijaya Pineda MD [Primary Care Provider] - Additional Instructions: The chest x-ray performed in the clinic today showed no evidence of pneumonia. The radiologist will be reviewing the x-ray in the morning and we will contact you if they see anything that changes are plan of care. Your history and exam are consistent with acute bronchitis with reactive airway disease (wheezing). Considering the duration of your symptoms we will start to on an antibiotic and oral steroid to treat for the infection and inflammation of the airways. Start Augmentin 875 mg 1 tablet twice daily 10 days. Take with food to avoid upset stomach. Be sure to complete the entire course even if feeling better. We gave you the first dose in the clinic this evening. Start prednisone 40 mg (4 tabs) once daily for 3 days. We gave you the first dose in the clinic this evening. After the third day take 30 mg (C3 tabs) once daily for 3 days, then 20 mg (2 tabs) daily for 3 days, then 10 mg (1 tab) daily for 3 days, then stop. Use your albuterol inhaler 2 puffs every 4-6 hours as needed for shortness of breath or wheezing. Get plenty of rest. Drink plenty of fluids. Run a cool mist humidifer in your room at night. Take over the counter acetaminophen (Tylenol) or ibuprofen (Advil, Motrin) according to directions as needed for pain or fever. Take Tessalon Perles 1 cap every 8 hours as needed for cough. We gave you a dose of this at approximately 8:15 PM tonight. Follow up with your primary care provider in 5-7 days for a recheck of your symptoms. Seek immediate medical attention in the emergency room if you have fever greater than 100.5 F despite taking acetaminophen or ibuprofen, have chest pain , difficulty breathing, or have any worsening of symptoms. - Billing Disposition and Condition Condition: STABLE Disposition: Home
[2019-12-31] MEDS ORDERED: Amoxicillin/Clavulanate TAB* 875 MG PO ONE (20:03)
[2019-12-31] MEDS ORDERED: Benzonatate CAP* 100 MG PO ONE (20:03)
--- NOTE | 2020-01-01 10:54 | UC ---
- Progress Note Progress Note: wet read correct Course/Dx - Diagnoses Provider Diagnoses: Acute bronchitis, Reactive airway disease Discharge ED - Sign-Out/Discharge Documenting (check all that apply): Post-Discharge Follow Up All imaging exams completed and their final reports reviewed: Yes - Discharge Plan Disposition: HOME Prescriptions: Amoxicillin/Clavulanate TAB* [Augmentin TAB 875*] 875 mg PO BID #19 tab Benzonatate CAP* [Tessalon 100 MG CAP*] 100 mg PO TID PRN #21 cap PRN Reason: Cough predniSONE 10 mg TAB [Deltasone 10 MG TAB*] 10 mg PO DAILY #26 tab Patient Education Materials: Acute Bronchitis (ED), Wheezing (ED) Referrals: Vijaya Pineda MD [Primary Care Provider] - Additional Instructions: The chest x-ray performed in the clinic today showed no evidence of pneumonia. The radiologist will be reviewing the x-ray in the morning and we will contact you if they see anything that changes are plan of care. Your history and exam are consistent with acute bronchitis with reactive airway disease (wheezing). Considering the duration of your symptoms we will start to on an antibiotic and oral steroid to treat for the infection and inflammation of the airways. Start Augmentin 875 mg 1 tablet twice daily 10 days. Take with food to avoid upset stomach. Be sure to complete the entire course even if feeling better. We gave you the first dose in the clinic this evening. Start prednisone 40 mg (4 tabs) once daily for 3 days. We gave you the first dose in the clinic this evening. After the third day take 30 mg (C3 tabs) once daily for 3 days, then 20 mg (2 tabs) daily for 3 days, then 10 mg (1 tab) daily for 3 days, then stop. Use your albuterol inhaler 2 puffs every 4-6 hours as needed for shortness of breath or wheezing. Get plenty of rest. Drink plenty of fluids. Run a cool mist humidifer in your room at night. Take over the counter acetaminophen (Tylenol) or ibuprofen (Advil, Motrin) according to directions as needed for pain or fever. Take Tessalon Perles 1 cap every 8 hours as needed for cough. We gave you a dose of this at approximately 8:15 PM tonight. Follow up with your primary care provider in 5-7 days for a recheck of your symptoms. Seek immediate medical attention in the emergency room if you have fever greater than 100.5 F despite taking acetaminophen or ibuprofen, have chest pain , difficulty breathing, or have any worsening of symptoms. - Billing Disposition and Condition Disposition: Home
== END 2019-12-31 20:27 | disposition home or self-care (01) ==
LOC: UCEAST 18:05
DX: J20.9 Acute bronchitis, unspecified (principal); J44.9 Chronic obstructive pulmonary disease, unspecified; K21.9 Gastro-esophageal reflux disease without esophagitis; Z79.899 Other long term (current) drug therapy; Z88.5 Allergy status to narcotic agent; Z87.891 Personal history of nicotine dependence
CPT/HCPCS: 71046; 99213; A9270-GY; G0463; J7512